=== PATIENT | female | born 1995 | race Caucasian/White ===

== ENCOUNTER 2019-03-07 12:56 | Emergency (ER) | payer BC ==
[2019-03-07] MEDS ORDERED: NORMAL SALINE 1000 ML 1,000 ML IV ONE (13:38)
[2019-03-07] MEDS ORDERED: ONDANSETRON HCL INJ/PF 4 MG/2 ML SDV IV ONE ×2 (13:38→16:09)
[2019-03-07] MEDS ORDERED: MAG HYDROX/AL HYDROX/SIMETH SUSP 30 ML UDCUP PO ONE (13:39)
[2019-03-07] MEDS ORDERED: METOCLOPRAMIDE HCL ORAL SOLN 10 MG/10 ML UDCUP PO ONE (13:39)
[2019-03-07] MEDS ORDERED: LIDOCAINE 2% VISCOUS SOLN 20 ML UDCUP PO ONE (13:39)
--- NOTE | 2019-03-07 13:41 | ER Document Report ---
ED Medical Screen (RME) - General Chief Complaint: Abdominal Pain Stated Complaint: ABDOMINAL PAIN Time Seen by Provider: 03/07/19 13:35 Primary Care Provider: MYRON MARQUEZ MD [Primary Care Provider] - Follow up as needed TRAVEL OUTSIDE OF THE [place] IN LAST 30 DAYS: No - HPI Notes: 03/07/19 13:39 Patient is a 24-year-old female with a history of gastritis and ulcers with recent endoscopy 6 days ago who presents complaining of epigastric abdominal pain and possible flareup of her gastritis. Patient states that she did eat food on Thursday which is when her pain started that immediately started giving her pain. Patient states that the pain has been intermittent since then with associated nausea and vomiting. She is otherwise urinating normally and having normal bowel movements without melena or hematochezia. Denies drug allergies. No other surgical history to her abdomen. Last menstrual period was a couple weeks ago. Denies MONREAL, fever, neck pain, URI, CP, SOB, dysuria, or rash. I have treated and performed a rapid initial assessment of this patient. A comprehensive ED assessment and evaluation of the patient, analysis of test results and completion of medical decision making process will be conducted by additional ED providers. PHYSICAL EXAMINATION: GENERAL: Well-appearing, well-nourished and in no acute distress. A&Ox4. Answers questions appropriately. LUNGS: Breath sounds clear to auscultation bilaterally and equal. No wheezes rales or rhonchi. HEART: Regular rate and rhythm without murmurs, rubs, gallops. ABDOMEN: Soft, nondistended abdomen. No guarding, no rebound. Normal bowel sounds present. No CVA tenderness bilaterally. + epigastric tenderness (cannot elicit thorough abd exam w/o table, however). Extremities: No cyanosis, clubbing, or edema b/l. NEUROLOGICAL: Normal speech, normal gait. PSYCH: Normal mood, normal affect. - Related Data Allergies/Adverse Reactions: No Known Allergies Allergy (Unverified 03/07/19 12:56) Past Medical History - Social History Chew tobacco use (# tins/day): No Frequency of alcohol use: None Drug Abuse: None Renal/ Medical History: Denies: Hx Peritoneal Dialysis Physical Exam - Vital signs Vitals: Temp Pulse Resp BP Pulse Ox 98.6 F 57 L 16 131/89 H 100 03/07/19 13:11 03/07/19 13:11 03/07/19 13:11 03/07/19 13:11 03/07/19 13:11 Course - Vital Signs Vital signs: Temp Pulse Resp BP Pulse Ox 98.6 F 57 L 16 131/89 H 100 03/07/19 13:11 03/07/19 13:11 03/07/19 13:11 03/07/19 13:11 03/07/19 13:11 Doctor's Discharge - Discharge Referrals: MYRON MARQUEZ MD [Primary Care Provider] - Follow up as needed
[2019-03-07 14:10] LABS: ABSOLUTE BASOPHILS # (AUTO) 0.1 10^3/uL (0.0-0.2); ABSOLUTE LYMPHOCYTES (AUTO) 1.2 10^3/uL (0.5-4.7); ABSOLUTE MONOCYTES (AUTO) 0.3 10^3/uL (0.1-1.4); ABSOLUTE NEUT (AUTO) 2.7 10^3/uL (1.7-8.2); BASOPHILS % (AUTO) 1.4 % (0-2); EOSINOPHILS % (AUTO) 0.6 % (0-6); HEMATOCRIT 38.7 % (36.0-47.0); HEMOGLOBIN 12.9 g/dL (12.0-15.5); LYMPHOCYTES % (AUTO) 27.9 % (13-45); MEAN CORPUSCULAR HEMOGLOBIN 27.4 pg (27.0-33.4); MEAN CORPUSCULAR HGB CONC 33.4 g/dL (32.0-36.0); MEAN CORPUSCULAR VOLUME 82 fl (80-97); MONOCYTES % (AUTO) 7.3 % (3-13); PLATELET COUNT 244 10^3/uL (150-450); RED BLOOD COUNT 4.71 10^6/uL (3.72-5.28); RED CELL DISTRIBUTION WIDTH 15.6 % (11.5-14.0); SEGMENTED NEUTROPHILS % (AUTO) 62.8 % (42-78); TOTAL CELLS COUNTED % (AUTO) 100 %; WHITE BLOOD COUNT 4.3 10^3/uL (4.0-10.5)
[2019-03-07 14:30] LABS: ALANINE AMINOTRANSFERASE 27 U/L (9-52); ALBUMIN 5.4 g/dL (3.5-5.0); ALKALINE PHOSPHATASE 57 U/L (38-126); ANION GAP 18 (5-19); ASPARTATE AMINO TRANSFERASE 25 U/L (14-36); BILIRUBIN,DIRECT 0.3 mg/dL (0.0-0.4); BILIRUBIN,TOTAL 0.6 mg/dL (0.2-1.3); BLOOD UREA NITROGEN 9 mg/dL (7-20); CALCIUM 10.3 mg/dL (8.4-10.2); CARBON DIOXIDE 20 mmol/L (22-30); CHLORIDE 103 mmol/L (98-107); GLUCOSE 92 mg/dL (75-110); LIPASE 86.5 U/L (23-300); POTASSIUM 3.6 mmol/L (3.6-5.0); SODIUM 141.2 mmol/L (137-145); TOTAL PROTEIN 8.2 g/dL (6.3-8.2)
--- NOTE | 2019-03-07 15:47 | RADIOLOGY REPORT (SQ) ---
EXAM DESCRIPTION: U/S ABDOMEN LIMITED W/O DOP COMPLETED DATE/TIME: 03/07/2019 3:29 pm REASON FOR STUDY: epigastric pain, n/v COMPARISON: None. TECHNIQUE: Dynamic and static grayscale images acquired of the abdomen and recorded on PACS. Additio nal selected color Doppler and spectral images recorded. LIMITATIONS: None. FINDINGS: PANCREAS: No abnormality. LIVER: There is a focal area of increased echogenicity noted within the left lobe of the liver. The possibility of focal fatty infiltration rather than discrete lesion such as hemangioma must be a cons ideration. The liver is normal in size measuring 13.7 cm. LIVER VASCULATURE: Normal directional flow of the main portal vein and hepatic veins. GALLBLADDER: No stones. Normal gallbladder wall thickness measuring 1.2 mm. No pericholecystic flui d. ULTRASOUND-DETECTED ROMAN'S SIGN: Negative. INTRAHEPATIC DUCTS AND COMMON DUCT: CBD is normal measuring 0.15 cm. Intrahepatic ducts normal calib er. No filling defects. INFERIOR VENA CAVA: Normal flow. AORTA: The proximal abdominal aorta measures 1.6 cm in AP diameter. The mid abdominal aorta measures 1.5 cm and distally 1.3 cm. RIGHT KIDNEY: The right kidney demonstrates normal echogenicity measuring 10.5 cm. Normal Doppler f low. No hydronephrosis. PERITONEAL AND RIGHT PLEURAL SPACE: No ascites or effusions. IMPRESSION: 1. There is a focal area of increased echogenicity within the left lobe of liver. The possibility of a discrete lesion such as hemangioma versus focal fatty infiltration are consideration s. TECHNICAL DOCUMENTATION: JOB ID: [id number] [employer]- All Rights Reserved Reading location - IP/workstation name: [email or web address]
[2019-03-07] MEDS ORDERED: MORPHINE SULFATE 10 MG/ML INJ IV ONE ×2 (16:09→18:35)
[2019-03-07] MEDS ORDERED: RINGERS SOLUTION,LACTATED 1,000 ML IV ONE (16:09)
--- NOTE | 2019-03-07 16:22 | ER Document Report ---
ED General - General Chief Complaint: Abdominal Pain Stated Complaint: ABDOMINAL PAIN Time Seen by Provider: 03/07/19 13:35 Primary Care Provider: MYRON MARQUEZ MD [Primary Care Provider] - Follow up as needed Mode of Arrival: Ambulatory Information source: Patient Notes: This is a 24-year-old female with a history of erosive gastritis (diagnosed by EGD last week), recent diagnosis of colitis (scheduled for colonoscopy in 2 days) who presents to the emergency room with nausea, vomiting and crampy abdominal pain. Patient has had symptoms for some time. She was in the ER in [place] on February 11 in February [address] scan which she reports is showing colitis. She denies fever. She denies blood in the stool. Her current medicines are Bentyl and ranitidine and states she ran out of her Phenergan. TRAVEL OUTSIDE OF THE [place] IN LAST 30 DAYS: No - HPI Onset: Last week Onset/Duration: Gradual Quality of pain: Dull Severity: Moderate Pain Level: 3 Associated symptoms: Nausea, Other. denies: Fever, Shortness of breath Exacerbated by: Denies - Nominal pain Relieved by: Denies Similar symptoms previously: Yes Recently seen / treated by doctor: Yes - Related Data Allergies/Adverse Reactions: No Known Allergies Allergy (Unverified 03/07/19 12:56) Past Medical History - General Information source: Patient - Social History Smoking Status: Current Every Day Smoker Cigarette use (# per day): Yes - Half pack per day Chew tobacco use (# tins/day): No Frequency of alcohol use: None Drug Abuse: None Lives with: Family Family History: None Patient has suicidal ideation: No Patient has homicidal ideation: No - Past Medical History Cardiac Medical History: Reports: None Pulmonary Medical History: Reports: None EENT Medical History: Reports: None Neurological Medical History: Reports: None Endocrine Medical History: Reports: None Renal/ Medical History: Reports: None. Denies: Hx Peritoneal Dialysis GI Medical History: Reports: Hx Gastritis, Other - Colitis Musculoskeletal Medical History: Reports None Skin Medical History: Reports None Psychiatric Medical History: Reports: None Traumatic Medical History: Reports: None Infectious Medical History: Reports: None Surgical Hx: Negative Review of Systems - Review of Systems Constitutional: denies: Chills, Fever EENT: No symptoms reported Cardiovascular: No symptoms reported Respiratory: No symptoms reported Gastrointestinal: See HPI Genitourinary: No symptoms reported Female Genitourinary: No symptoms reported Musculoskeletal: No symptoms reported Skin: No symptoms reported Hematologic/Lymphatic: No symptoms reported Neurological/Psychological: No symptoms reported Physical Exam - Vital signs Vitals: Temp Pulse Resp BP Pulse Ox 98.6 F 57 L 16 131/89 H 100 03/07/19 13:11 03/07/19 13:11 03/07/19 13:11 03/07/19 13:11 03/07/19 13:11 Notes: Physical exam: GENERAL: She is alert and oriented x3, she does appear dehydrated. Her vital signs are stable HEAD: Atraumatic, normocephalic. EYES: Pupils equal round and reactive to light, extraocular movements intact, sclera anicteric, conjunctiva are normal. ENT: TMs normal, nares patent, oropharynx clear without exudates. dry mucous membranes. NECK: Normal range of motion, supple without obvious mass or JVD. LUNGS: Breath sounds clear to auscultation bilaterally and equal. No wheezes rales or rhonchi. HEART: Regular rate and rhythm without murmurs, rubs or gallops. ABDOMEN: Soft, normoactive bowel sounds. No tenderness to palpation. No guarding, no rebound. No masses appreciated. EXTREMITIES: Normal range of motion, no pitting or edema. No clubbing or cyanosis. NEUROLOGICAL: Cranial nerves II through XII grossly intact. Normal speech, moving all extremities. PSYCH: Normal mood, normal affect. SKIN: Warm, Dry, normal turgor, no rashes or lesions noted. Course - Vital Signs Vital signs: Temp Pulse Resp BP Pulse Ox 98.1 F 65 16 123/83 97 03/07/19 19:00 03/07/19 19:00 03/07/19 13:11 03/07/19 18:58 03/07/19 19:01 - Laboratory Result Diagrams: 03/07/19 13:53 03/07/19 13:53 Laboratory results interpreted by me: 03/07/19 03/07/19 03/07/19 13:53 13:53 17:33 RDW 15.6 H Carbon Dioxide 20 L Calcium 10.3 H Albumin 5.4 H Urine Ketones 80 H Urine Blood LARGE H Discharge - Discharge Clinical Impression: Vomiting with nausea, Abdominal pain Condition: Stable Disposition: HOME, SELF-CARE Instructions: Abdominal Pain ([facility]) Additional Instructions: As we discussed, your labs and ultrasound looked reasonably well. I want you to drink all amounts of fluid often and advance diet slowly. Take the nausea medicine and pain medicine as prescribed. Follow-up with the GI doctors as planned on Thursday for the colonoscopy. The meantime, return to the ER for worsening pain or inability to tolerate fluids. Prescriptions: Promethazine HCl [Phenergan 25 mg Tablet] 25 mg PO Q4HP PRN #14 tablet PRN Reason: Oxycodone HCl/Acetaminophen [Percocet 5-325 mg Tablet] 1 - 2 tab PO ASDIR PRN #15 tablet PRN Reason: Referrals: MYRON MARQUEZ MD [Primary Care Provider] - Follow up as needed
[2019-03-07 18:03] LABS: APPEARANCE,URINE CLEAR; BILIRUBIN,URINE NEGATIVE (NEGATIVE); COLOR,URINE YELLOW; GLUCOSE, URINE NEGATIVE (NEGATIVE); KETONES,URINE 80 mg/dL (NEGATIVE); LEUKOCYTE ESTERASE,URINE NEGATIVE (NEGATIVE); NITRITE,URINE NEGATIVE (NEGATIVE); PROTEIN,URINE NEGATIVE (NEGATIVE); URINE SPECIFIC GRAVITY 1.015; UROBILINOGEN,URINE NEGATIVE mg/dL (<2.0)
[2019-03-07 19:00] VITALS: BP 123/83
== END 2019-03-07 19:20 | disposition home or self-care (01) ==
LOC: ER 12:56
DX: K29.70 Gastritis, unspecified, without bleeding (principal); K52.9 Noninfective gastroenteritis and colitis, unspecified; R11.2 Nausea with vomiting, unspecified; R10.9 Unspecified abdominal pain; F17.210 Nicotine dependence, cigarettes, uncomplicated
CPT/HCPCS: 96376; 99284; 96361; 96374; 96375; 36415; 84702; 83690; 85025; 80053; 81001; 76705; J3490; J2270; J2405; J7030; J7120